=== PATIENT | male | born 1965 | race Caucasian/White ===

== ENCOUNTER 2023-04-05 08:50 | Observation (INO) | payer OTHER ==
[2023-04-02 13:55] LABS: Hematocrit 44.8 % (38.8-50.0); Hemoglobin 15.4 g/dL (13.5-17.5); Mean Corpuscular HGB CONC 34.4 g/dL (32.0-36.0); Mean Corpuscular Hemoglobin 32.2 pg (27.0-33.0); Mean Corpuscular Volume 93.5 fl (81.2-95.1); Mean Platelet Volume 9.3 fl (7.4-10.4); Platelet Count 224 10x3/uL (150-450); RBC Distribution Width 12.7 % (11.5-14.5); Red Blood Cell (RBC) Count 4.79 10x6/uL (4.32-5.72)
[2023-04-02 14:13] LABS: INR-International Normal Ratio 2.2; Prothrombin Time 23.5 sec (9.5-12.1)
[2023-04-02 14:16] LABS: Anion Gap 17 mmol/L (10-20); BUN (Urea Nitrogen) 13 mg/dL (8.4-25.7); Calc. Creatinine Clearance 81 mL/min (70-130); Carbon Dioxide 20 mmol/L (22-29); Chloride 106 mmol/L (98-107); Estimated GFR 75; Glucose 98 mg/dL (70-105); Potassium 4.8 mmol/L (3.5-5.1); Sodium 138 mmol/L (136-145)
[2023-04-05 09:43] LABS: INR-International Normal Ratio 2.4; PTT 42.6 sec (22.9-36.1); Prothrombin Time 27.4 sec (12.0-14.7)
[2023-04-05] MEDS ORDERED: Lidocaine 1% (PF) 30 ML VIAL ONE (10:02)
[2023-04-05] MEDS ORDERED: Gentamicin 80 MG/2 ML VIAL ONE (10:02)
[2023-04-05] MEDS ORDERED: Clindamycin/D5W 900 mg/50 ml Premix Bag ONE (10:11)
[2023-04-05] MEDS ORDERED: Clindamycin/D5W 600 mg/50 ml Premix Bag ONE (10:21)
[2023-04-05] MEDS ORDERED: Ketamine 50 MG/ML (10ML VIAL) ONE (10:41)
[2023-04-05] MEDS ORDERED: Propofol 500 MG/50 ML VIAL ONE (10:41)
[2023-04-05] MEDS ORDERED: fentaNYL PF 100 MCG/2 ML SYRINGE ONE (10:41)
[2023-04-05] MEDS ORDERED: Midazolam HCl 2 mg/2 ml Vial ONE (10:41)
[2023-04-05] MEDS ORDERED: Acetaminophen 325 MG TAB PO PRN (11:40)
[2023-04-05] MEDS ORDERED: fentaNYL 50 mcg/mL 1 mL Vial ONE ×3 (11:58→12:37)
[2023-04-05] MEDS ORDERED: Nitroglycerin 0.4 MG TAB (25 Tab Bottle) SL PRN (12:45)
[2023-04-05] MEDS ORDERED: Warfarin Sodium 5 MG TAB PO SCH (12:45)
[2023-04-05 14:11] VITALS: BMI 24.2
[2023-04-05] MEDS: Furosemide 40 MG TAB PO SCH (15:08)
[2023-04-05] MEDS: traMADol HCl 50 MG TAB PO PRN (15:18)
[2023-04-05] MEDS: HYDROcodone/Acetaminophen 5/325 mg Tablet PO PRN ×2 (17:43→21:35)
[2023-04-05] MEDS: Isosorbide Mononitrate 20 MG TAB PO SCH (20:16)
[2023-04-05] MEDS: Sacubitril 24MG/Valsartan 26 MG TAB PO SCH (20:16)
[2023-04-06] MEDS: traMADol HCl 50 MG TAB PO PRN (03:39)
[2023-04-06] MEDS ORDERED: Spironolactone 25 MG TAB PO SCH (08:00)
[2023-04-06] MEDS: Sacubitril 24MG/Valsartan 26 MG TAB PO SCH (08:34)
[2023-04-06 08:35] VITALS: BP 99/61; TEMP 99.2
[2023-04-06] MEDS: Furosemide 40 MG TAB PO SCH (08:38)
[2023-04-06] MEDS: Isosorbide Mononitrate 20 MG TAB PO SCH (08:39)
[2023-04-06] MEDS ORDERED: Potassium Chloride 20 MEQ TAB PO SCH (09:00)
[2023-04-06] MEDS ORDERED: Aspirin Chewable 81 MG TAB PO SCH (09:00)
[2023-04-06] MEDS ORDERED: Empagliflozin 10 MG TAB PO SCH (09:00)
[2023-04-06 10:34] LABS: Hematocrit 37.1 % (42.0-52.0); Hemoglobin 12.6 g/dL (14.0-18.0); Platelet Count 156 10x3/uL (130-400)
[2023-04-06] MEDS: HYDROcodone/Acetaminophen 5/325 mg Tablet PO PRN (10:42)
[2023-04-06 10:48] LABS: INR-International Normal Ratio 3.2; Prothrombin Time 34.5 sec (12.0-14.7)
[2023-04-06] MEDS ORDERED: Warfarin Sodium 5 MG TAB PO SCH (17:00)
== END 2023-04-06 12:22 | disposition home or self-care (01) ==
LOC: SDC 08:50 → 2SW 10:23
PROVIDERS: ADMIT Internal Medicine Cardiovascular Disease; ATTEND Internal Medicine Cardiovascular Disease
PROC: 02PA3MZ Removal of Cardiac Lead from Heart, Percutaneous Approach (ICD-10-PCS; principal; 2023-04-05)
PROC: 02HL3KZ Insertion of Defibrillator Lead into Left Ventricle, Percutaneous Approach (ICD-10-PCS; 2023-04-05)
DX: I47.29 Other ventricular tachycardia (principal); I50.22 Chronic systolic (congestive) heart failure; T82.110A Breakdown (mechanical) of cardiac electrode, initial encounter; Z88.0 Allergy status to penicillin; Z79.82 Long term (current) use of aspirin; Z79.899 Other long term (current) drug therapy; Z79.01 Long term (current) use of anticoagulants; Z88.1 Allergy status to other antibiotic agents; Z88.5 Allergy status to narcotic agent; Z88.2 Allergy status to sulfonamides
CPT/HCPCS: 33229; 80048; 85014; 85018; 85027; 85049; 85610 ×3; 85730; C1763; C1882; J3010; 33264; 36415; J1580; J2001; J2250; J2704; J3490